=== PATIENT | male | born 1945 | race Caucasian/White ===

== ENCOUNTER 2016-03-09 21:42 | Emergency (ER) | payer OTHER ==
[2016-03-09 21:55] VITALS: BP 157/65; PULSE 97; TEMP 98; BMI 31.0
--- NOTE | 2016-03-09 23:34 | PDOC ---
History of Present Illness - History of Present Illness Initial Comments: 03/10/16 01:47 Patient is a 70 year old male with significant medical hx of AFib, HLD, HTN, CHF , BPH and hypothyroidism who is presenting to the ED with shortness of breath for two days. The patient was recently discharged from ICU (03/08/16) for a severe case of epistaxis. He reports that during his last night he experienced shortness of breath while he was trying to sleep. The patient was given a shot of lasix which helped him sleep for a few hours. This morning, sleeping at home , the patient woke up at 6 AM and experienced another sudden episode of shortness of breath.The patient called his doctor and he took a doubled dose of lasix today (took 80 mg) which helped him for a while until he had another episode of shortness of breath later this evening while trying to doze off in a recliner chair. Patient states that he has these episodes of shortness of breath when he is lying down; his symptoms tend to worsen when lying flat as he is going to sleep. The patient notes that at baseline his shortness of breath worsens when climbing a flight of stairs; he did not climb any stairs today. Pt states he feels well currently and denies any sob. Pt denies any increased leg swelling. Denies fever, chills, or chest pain. Denies abd pain, back pain, n/v, f/c, cough , hemoptysis. Social Hx: Former smoker " <Elizabeth Torrez - Last Filed: 03/10/16 01:46> <Geoffrey Dhillon - Last Filed: 03/10/16 02:03> - General Chief Complaint: Shortness of Breath Stated Complaint: SOB Time Seen by Provider: 03/09/16 22:10 Past History <Elizabeth Torrez - Last Filed: 03/10/16 01:46> - Past Medical History Cardiac Disorders: Yes (a.fib) CHF: Yes HTN: Yes Hypercholesterolemia: Yes Psychiatric Problems: Yes (depression) Thyroid Disease: Yes (hypo) - Psycho/Social/Smoking Cessation Hx Anxiety: No Suicidal Ideation: No Smoking History: Former smoker Have you smoked in the past 12 months: No Information on smoking cessation initiated: No Hx Alcohol Use: No Drug/Substance Use Hx: No <Geoffrey Dhillon - Last Filed: 03/10/16 02:03> - Past Medical History Allergies/Adverse Reactions: Allergies Allergy/AdvReac Type Severity Reaction Status Date / Time No Known Allergies Allergy Verified 03/09/16 21:51 Home Medications: Ambulatory Orders Carvedilol [Coreg] 25 mg PO DAILY 11/06/15 Dabigatran Etexilate Mesylate [Pradaxa -] 150 mg PO BID 11/06/15 Digoxin 125 mcg PO DAILY 11/06/15 Ergocalciferol (Vitamin D2) [Vitamin D2] 2,000 unit PO DAILY 11/06/15 Fenofibrate [Fenoglide] 120 mg PO DAILY 11/06/15 Sertraline HCl 50 mg PO DAILY 11/06/15 Simvastatin [Zocor -] 10 mg PO HS 11/06/15 Tamsulosin HCl 0.4 mg PO DAILY 11/06/15 Furosemide 40 mg PO DAILY #0 11/09/15 Levothyroxine [Synthroid -] 88 mcg PO DAILY@0700 #30 tablet 11/09/15 Potassium Chloride [K-Dur -] 20 meq PO DAILY #30 tablet.er 11/09/15 Valsartan [Diovan] 160 mg PO BID #60 tablet 11/09/15 [place]-3 Acid Ethyl Esters [Lovaza] 1 gm PO ASDIR 03/03/16 Cefuroxime Axetil [Ceftin -] 250 mg PO BID #14 tablet 03/08/16 Hydralazine HCl [Apresoline -] 25 mg PO BID #60 tablet 03/08/16 Sodium Chloride Nasal [place] [[place] Nasal [place] -] 2 spray NS QID #1 bottle 03/08/16 Review of Systems - Review of Systems Comments:: 03/10/16 01:48 CONSTITUTIONAL: No reported: Fever, Chills, Diaphoresis, Generalized Weakness, Malaise, Loss of Appetite HEENT: No reported: Rhinorrhea, Nasal Congestion, Throat Pain, Throat Swelling, Difficulty Swallowing, Mouth Swelling, Ear Pain, Eye Pain, Visual Changes CARDIOVASCULAR: No reported: Chest Pain, Syncope, Palpitations, Irregular Heart Rate, Lightheadedness, Peripheral Edema RESPIRATORY: Reported: Shortness of Breath No reported: Cough, SOB with Exertion, Orthopnea, Wheezing, Stridor, Hemoptysis GASTROINTESTINAL: No reported: Abdominal pain, Abdominal Distension, Nausea, Vomiting, Diarrhea, Constipation, Melena, Hematochezia GENITOURINARY: No reported: Dysuria, Frequency, Urgency, Hesitancy, Flank Pain, Genital Pain MUSCULOSKELETAL: No reported: Myalgia, Arthralgia, Joint Swelling, Back pain, Neck Pain SKIN: No reported: Rash, Itching, Pallor HEMEATOLOGIC/IMMUNOLOGIC: No reported: Easy Bleeding, Easy Bruising, Lymphadenopathy, Frequent infections ENDOCRINE: No reported: Unexplained Weight Gain, Unexplained Weight Loss, Heat Intolerance , Cold Intolerance NEUROLOGIC: No reported: Headache, Focal Weakness, Paresthesias, Vertigo, Lightheadedness, Unsteady Gait, Seizure, Mental Status Changes, Incontinence PSYCHIATRIC: No reported: Anxiety, Depression <Elizabeth Torrez - Last Filed: 03/10/16 01:46> *Physical Exam - Vital Signs Last Vital Signs Temp Pulse Resp BP Pulse Ox 98.0 F 97 H 14 157/65 97 03/09/16 21:52 03/09/16 21:52 03/09/16 21:52 03/09/16 21:52 03/09/16 21:52 - Physical Exam Comments: 03/10/16 01:48 GENERAL: The patient is awake, alert, and fully oriented, Nontoxic - in no acute distress. HEAD: Normocephalic, atraumatic. EYES: extraocular movements intact, sclera anicteric, conjunctiva clear. ENT: Normal voice, Moist mucous membranes. NECK: Normal range of motion, supple LUNGS: Breath sounds equal, clear to auscultation bilaterally. No wheezes, no rhonchi, no rales. HEART: Regular rate and rhythm, without murmur, rub or gallop. ABDOMEN: Soft, nontender, normoactive bowel sounds. No guarding, no rebound.No CVA tenderness EXTREMITIES: Lower extremity trace edema. Normal range of motion. No clubbing or cyanosis. No cords, erythema, or tenderness. NEUROLOGICAL: No facial assymetry, Normal speech, PSYCH: Normal mood, normal affect. SKIN: Warm, Dry, normal turgor. <Elizabeth Torrez - Last Filed: 03/10/16 01:46> - Vital Signs Last Vital Signs Temp Pulse Resp BP Pulse Ox 98.0 F 97 H 14 157/65 97 03/09/16 21:52 03/09/16 21:52 03/09/16 21:52 03/09/16 21:52 03/09/16 21:52 <Geoffrey Dhillon - Last Filed: 03/10/16 02:03> Heart Score/ECG Review - ECG Impressions Comment:: 03/10/16 00:23 Twelve-lead EKG was performed and reviewed by me. Irregularly iregular rate of 94 LAFB abnormal r wave progression nonspecifc st changes <Geoffrey Dhillon - Last Filed: 03/10/16 02:03> ED Treatment Course - LABORATORY CBC & Chemistry Diagram: 03/10/16 00:58 03/10/16 00:58 - ADDITIONAL ORDERS Additional order review: 03/10/16 00:58 RBC 5.02 MCV 87.3 MCHC 32.1 RDW 16.6 H MPV 10.6 Neutrophils % 71.2 Lymphocytes % 18.7 Monocytes % 7.3 Eosinophils % 1.7 Basophils % 1.1 <Elizabeth Torrez - Last Filed: 03/10/16 01:46> - LABORATORY CBC & Chemistry Diagram: 03/10/16 00:58 03/10/16 00:58 <Geoffrey Dhillon - Last Filed: 03/10/16 02:03> Medical Decision Making - Medical Decision Making 03/09/16 23:33 70y M recent hx of epistaxis present with sob - pt describes feeling sob when he is falling asleep - thinks it may be chf exacerbation, however pt denies any cp, leg swelling, orthpnea is bsaeline. pts exam unremarkable without crackles, le edema will ck cxr, ekg, labs susp[ect possible [place] A portion of this note was documented by scribe services under my direction. I have reviewed the details of the note, within reason, and agree with the documentation with the following case summary and management plan written by me 03/10/16 02:01 cxr shows no acute disease, possibly very mild congestion labs noted for bnp of 1k will give pt dose of lasix will d/c the pt to fu with dr. Martin as outpatient return precautions were discussed I discussed the physical exam findings, ancillary test results and final diagnoses with the patient. I answered all of the patient's questions. The patient was satisfied with the care received and felt comfortable with the discharge plan and treatment plan. The patient will call their primary care physician within 24 hours to arrange follow-up and will return to the Emergency Department with any new, persistent or worsening symptoms. <Geoffrey Dhillon - Last Filed: 03/10/16 02:03> *DC/Admit/Observation/Transfer - Attestations Scribe Attestion: 03/10/16 01:49 Documentation prepared by Elizabeth Torrez, acting as medical dir for Geoffrey Dhillon MD. <Elizabteh Torrez - Last Filed: 03/10/16 01:46> - Discharge Dispostion Admit: No <Geoffrey Dhillon - Last Filed: 03/10/16 02:03> Diagnosis at time of Disposition: CHF exacerbation Qualifiers: Congestive heart failure type: unspecified congestive heart failure type Qualified Code(s): I50.9 - Heart failure, unspecified - Discharge Dispostion Disposition: HOME Condition at time of disposition: Improved - Referrals Referrals: Edna Quintero MD [Primary Care Provider] - Lázaro Barksdale MD [Staff Physician] - - Patient Instructions Printed Discharge Instructions: DI for Heart Failure Additional Instructions: Return to the emergency department immediately with ANY new, persistent or worsening symptoms. You MUST call and follow up with your primary care doctor and business project analyst within 3-4 days for further evaluation of your symptoms. Results were discussed with you. Please make sure your doctor reviews the results of your emergency evaluation. If you had any xrays during your visit, it was read preliminarily by myself, a Radiologist will review it and if there are any additional findings we will call you. Print Language: CHINESE
[2016-03-10 01:12] LABS: BASOPHIL 1.1 % (0-2.0); EOSINOPHIL 1.7 % (0-4.5); MCH 28.1 pg (25.7-33.7); MCHC 32.1 g/dl (32.0-35.9); MEAN CELL VOLUME 87.3 fl (80-96); MEAN PLT VOLUME 10.6 fl (7.5-11.1); NEUTROPHILS 71.2 % (42.8-82.8); PLATELET COUNT 132 K/MM3 (134-434); RDW 16.6 % (11.9-15.9); WHITE BLOOD COUNT 8.5 K/mm3 (4.0-10.0)
[2016-03-10 01:41] LABS: ALBUMIN 3.5 g/dl (3.4-5.0); ANION GAP 12 (8-16); BILIRUBIN,TOTAL 1.1 mg/dL (0.2-1.0); CALCIUM 8.6 mg/dL (8.5-10.1); CO2 29 mmol/L (21-32); CREATININE 1.1 mg/dL (0.7-1.3); GLUCOSE,RANDOM 106 mg/dL (74-106); SGOT/AST 20 U/L (15-37); SGPT/ALT 14 U/L (12-78); TOT PROT 7.2 g/dl (6.4-8.2)
[2016-03-10 01:43] LABS: ALK PHOS 62 U/L (45-117)
[2016-03-10] MEDS ORDERED: FUROSEMIDE 40 MG/4 ML INJECTABLE VIAL IVPUSH ONE (02:00)
[2016-03-10] MEDS ORDERED: FUROSEMIDE 40 MG/4 ML INJECTABLE VIAL ONE (02:12)
--- NOTE | 2016-03-10 13:13 | EKG ---
Test Reason : Blood Pressure : / mmHG Vent. Rate : 094 BPM Atrial Rate : 101 BPM P-R Int : 000 ms QRS Dur : 112 ms QT Int : 368 ms P-R-T Axes : 000 -45 110 degrees QTc Int : 460 ms ATRIAL FIBRILLATION WITH PREMATURE VENTRICULAR OR ABERRANTLY CONDUCTED COMPLEXES LEFT ANTERIOR FASCICULAR BLOCK SEPTAL INFARCT (CITED ON OR BEFORE 07-MAY-2010) ST ABNORMAL ECG WHEN COMPARED WITH ECG OF 03-MAR-2016 09:26, T WAVE VARIATION Confirmed by SHAD RICO MD ([id number]) on 03/10/2016 1:13:09 PM Referred By: Overread By: SHAD RICO MD
== END 2016-03-10 02:23 | disposition home or self-care (01) ==
LOC: JER 21:42
PROC: 3E033GC Introduction of Other Therapeutic Substance into Peripheral Vein, Percutaneous Approach (ICD-10-PCS; principal; 2016-03-09)
DX: I50.9 Heart failure, unspecified (principal); I48.91 Unspecified atrial fibrillation; Z79.01 Long term (current) use of anticoagulants; I10 Essential (primary) hypertension; E78.5 Hyperlipidemia, unspecified; E78.00 Pure hypercholesterolemia, unspecified; N40.0 Benign prostatic hyperplasia without lower urinary tract symptoms; E03.9 Hypothyroidism, unspecified
CPT/HCPCS: 36415; 71010-TC; 80053; 83880; 85025; 93005; 93010; 96374; 99281-25

== ENCOUNTER 2016-12-01 12:08 | Emergency (ER) | payer OTHER ==
[2016-12-01 12:16] VITALS: BP 158/89; PULSE 84; TEMP 97.5; BMI 42.7
--- NOTE | 2016-12-01 13:16 | PDOC ---
Attending Attestation - Resident Resident Name: Gokul Wood - ED Attending Attestation I have performed the following: I have examined & evaluated the patient, The case was reviewed & discussed with the resident, I agree w/resident's findings & plan, Exceptions are as noted - HPI HPI: 12/01/16 13:15 nosebleed - Physicial Exam PE: 12/01/16 13:15 No Hemorrhage - Medical Decision Making 12/01/16 13:[address] Wood's Assessment and Plan
--- NOTE | 2016-12-01 13:24 | PDOC ---
History of Present Illness - General Chief Complaint: Nasal Bleeding Stated Complaint: BLOODY NOSE Time Seen by Provider: 12/01/16 13:13 - History of Present Illness Initial Comments: 12/01/16 15:40 Mr. Donohue is a 71 yo male with a significant past medical history of afib on xarelta, HTN, who presents to the emergency department with a several hour history of intractable nose bleed (R nostril). He says this has happened before and he was admitted before they were able to control it. The patient denies chest pain, shortness of breath, headache and dizziness. Denies fever, chills, nausea, vomit, diarrhea and constipation. Denies dysuria, frequency, urgency and hematuria. Allergies: NKDA Past History - Past Medical History Allergies/Adverse Reactions: Allergies Allergy/AdvReac Type Severity Reaction Status Date / Time No Known Allergies Allergy Verified 12/01/16 12:13 Home Medications: Ambulatory Orders Carvedilol [Coreg] 25 mg PO DAILY 11/06/15 Digoxin 125 mcg PO DAILY 11/06/15 Fenofibrate [Fenoglide] 120 mg PO DAILY 11/06/15 Sertraline HCl 50 mg PO DAILY 11/06/15 Simvastatin [Zocor -] 10 mg PO HS 11/06/15 Tamsulosin HCl 0.4 mg PO DAILY 11/06/15 Furosemide 40 mg PO DAILY #0 11/09/15 Levothyroxine [Synthroid -] 88 mcg PO DAILY@0700 #30 tablet 11/09/15 Potassium Chloride [K-Dur -] 20 meq PO DAILY #30 tablet.er 11/09/15 Valsartan [Diovan] 160 mg PO BID #60 tablet 11/09/15 Cefuroxime Axetil [Ceftin -] 250 mg PO BID #14 tablet 03/08/16 Hydralazine HCl [Apresoline -] 25 mg PO BID #60 tablet 03/08/16 Sodium Chloride Nasal [place] [[place] Nasal [place] -] 2 spray NS QID #1 bottle 03/08/16 Cardiac Disorders: Yes (a.fib) CHF: Yes HTN: Yes Hypercholesterolemia: Yes Psychiatric Problems: Yes (depression) Thyroid Disease: Yes (hypo) - Immunization History Immunization Up to Date: Yes - Suicide/Smoking/Psychosocial Hx Smoking History: Former smoker Have you smoked in the past 12 months: No If you are a former smoker, when did you quit?: 2001 Information on smoking cessation initiated: No Hx Alcohol Use: No Drug/Substance Use Hx: No Review of Systems - Review of Systems Comments:: 12/01/16 15:40 GENERAL/CONSTITUTIONAL: No fever or chills. No weakness. HEAD, EYES, EARS, NOSE AND THROAT: +R nostril Nose bleed since waking up. No change in vision. No ear pain or discharge. No sore throat. CARDIOVASCULAR: No chest pain or shortness of breath RESPIRATORY: No cough, wheezing, or hemoptysis. GASTROINTESTINAL: No nausea, vomiting, diarrhea or constipation. GENITOURINARY: No dysuria, frequency, or change in urination. MUSCULOSKELETAL: No joint or muscle swelling or pain. No neck or back pain. SKIN: No rash NEUROLOGIC: No headache, vertigo, loss of consciousness, or change in strength/ sensation. ENDOCRINE: No increased thirst. No abnormal weight change HEMATOLOGIC/LYMPHATIC: No anemia, easy bleeding, or history of blood clots. ALLERGIC/IMMUNOLOGIC: No hives or skin allergy. *Physical Exam - Vital Signs Last Vital Signs Temp Pulse Resp BP Pulse Ox 97.5 F L 84 20 158/89 100 12/01/16 12:13 12/01/16 12:13 12/01/16 12:13 12/01/16 12:13 12/01/16 12:13 - Physical Exam Comments: 12/01/16 15:41 GENERAL: Awake, alert, and fully oriented, in no acute distress HEAD: No signs of trauma, normocephalic, atraumatic EYES: PERRLA, EOMI, sclera anicteric, conjunctiva clear ENT: +R nostril bleeding profusely on presentation, Auricles normal inspection, hearing grossly normal, oropharynx clear without exudates. Moist mucosa NECK: Normal ROM, supple, no lymphadenopathy, JVD, or masses LUNGS: No distress, speaks full sentences, clear to auscultation bilaterally HEART: Regular rate and rhythm, normal S1 and S2, no murmurs, rubs or gallops, peripheral pulses normal and equal bilaterally. ABDOMEN: Soft, nontender, normoactive bowel sounds. No guarding, no rebound. No masses EXTREMITIES: Normal inspection, Normal range of motion, no edema. No clubbing or cyanosis. NEUROLOGICAL: Cranial nerves II through XII grossly intact. Normal speech, normal gait, no focal sensorimotor deficits SKIN: Warm, Dry, normal turgor, no rashes or lesions noted. ED Treatment Course - LABORATORY CBC & Chemistry Diagram: 12/01/16 14:04 12/01/16 14:04 Medical Decision Making - Medical Decision Making 12/01/16 15:49 Patient presents with bleeding R nostril. Currently inflated with 8cc's to control bleeding. 12/01/16 16:12 Bleeding under control with R nostril packing. Will D/C to ENT/PCP follow-up *DC/Admit/Observation/Transfer Diagnosis at time of Disposition: Epistaxis - Discharge Dispostion Disposition: HOME - Referrals Referrals: Edna Quintero MD [Primary Care Provider] - Jorgito Vigil MD [Staff Physician] - - Patient Instructions Printed Discharge Instructions: DI for Nosebleed Additional Instructions: As instructed do not take your Xarelto until you are able to meet with your ENT. Avoid any warm foods/drinks as well. Please return if any increase in bleeding you are unable to control or any pain.
[2016-12-01 14:22] LABS: BASOPHIL 1.1 % (0-2.0); EOSINOPHIL 1.1 % (0-4.5); MCH 29.2 pg (25.7-33.7); MCHC 33.2 g/dl (32.0-35.9); MEAN CELL VOLUME 88.1 fl (80-96); MEAN PLT VOLUME 9.2 fl (7.5-11.1); NEUTROPHILS 78.6 % (42.8-82.8); PLATELET COUNT 108 K/MM3 (134-434); RDW 15.4 % (11.9-15.9); WHITE BLOOD COUNT 7.7 K/mm3 (4.0-10.0)
[2016-12-01 14:52] LABS: ALBUMIN 4.3 g/dl (3.4-5.0); ALK PHOS 55 U/L (45-117); ANION GAP 7 (8-16); BILIRUBIN,TOTAL 1.3 mg/dL (0.2-1.0); CALCIUM 8.8 mg/dL (8.5-10.1); CO2 30 mmol/L (21-32); CREATININE 1.1 mg/dL (0.7-1.3); GLUCOSE,RANDOM 109 mg/dL (74-106); SGOT/AST 12 U/L (15-37); SGPT/ALT 22 U/L (12-78); TOT PROT 7.7 g/dl (6.4-8.2)
== END 2016-12-01 16:24 | disposition home or self-care (01) ==
LOC: JER 12:08
PROC: 2Y41X5Z Packing of Nasal Region using Packing Material (ICD-10-PCS; principal; 2016-12-01)
DX: R04.0 Epistaxis (principal); I48.91 Unspecified atrial fibrillation; Z79.01 Long term (current) use of anticoagulants; I10 Essential (primary) hypertension; I50.9 Heart failure, unspecified; E03.9 Hypothyroidism, unspecified; F32.9 Major depressive disorder, single episode, unspecified; Z87.891 Personal history of nicotine dependence
CPT/HCPCS: 30901-25; 36415; 80053; 85025; 99282-25

== ENCOUNTER 2018-05-30 21:00 | Inpatient (IN) | payer OTHER ==
[2018-05-30 22:12] LABS: VENOUS PC02 37.3 mmHg (41-51); VENOUS PH 7.44 (7.31-7.41); VENOUS PO2 44.1 mmHg (30-40)
[2018-05-30 22:31] LABS: INR 1.58 (0.83-1.09); PROTHROMBIN TIME (PATIENT) 18.7 SEC (9.7-13.0)
[2018-05-30 22:37] LABS: BASO % 0.3 % (0-2.0); EOS % 1.2 % (0-4.5); HEMATOCRIT 47.8 % (35.4-49); HEMOGLOBIN 16.6 GM/dL (11.7-16.9); LYMPH % 9.3 % (8-40); MCH 30.5 pg (25.7-33.7); MCHC 34.7 g/dl (32.0-35.9); MEAN CELL VOLUME 88.1 fl (80-96); MEAN PLT VOLUME 10.6 fl (7.5-11.1); MONO % 5.8 % (3.8-10.2); NEUT % 83.4 % (42.8-82.8); PLATELET COUNT 89 K/MM3 (134-434); RBC 5.42 M/mm3 (4.00-5.60); RDW 15.8 % (11.9-15.9); WHITE BLOOD COUNT 6.2 K/mm3 (4.0-10.0)
[2018-05-30] MEDS ORDERED: OSELTAMIVIR PHOSPHATE 75 MG CAPSULE PO ONE (22:37)
[2018-05-30 22:42] LABS: ALBUMIN 4.2 g/dl (3.4-5.0); ALK PHOS 49 U/L (45-117); ANION GAP 8 MMOL/L (8-16); BILIRUBIN,TOTAL 2.2 mg/dL (0.2-1); BLOOD UREA NITROGEN 16 mg/dL (7-18); CALCIUM 8.6 mg/dL (8.5-10.1); CHLORIDE 105 mmol/L (98-107); CO2 25 mmol/L (21-32); CREATININE 1.3 mg/dL (0.55-1.3); GLUCOSE,RANDOM 105 mg/dL (74-106); POTASSIUM 3.9 mmol/L (3.5-5.1); SGOT/AST 20 U/L (15-37); SGPT/ALT 19 U/L (13-61); SODIUM 138 mmol/L (136-145); TOT PROT 7.8 g/dl (6.4-8.2)
[2018-05-30] MEDS ORDERED: FUROSEMIDE 40 MG/4 ML INJECTABLE VIAL IVPUSH ONE (22:47)
--- NOTE | 2018-05-30 22:53 | PDOC ---
History of Present Illness - General Chief Complaint: Shortness of Breath Stated Complaint: SHORTNESS OF BREATH Time Seen by Provider: 05/30/18 21:10 - History of Present Illness Initial Comments: 05/30/18 22:48 The patient is a 72 year old male with a PMH of AFib, CHF on lasix and COPD who presents to the ER with sore throat, nasal congestion, shortness of breath and cough for the past 2 days. Patient states that two days ago he noticed the sore throat followed by all the other symptoms. Patient has been experiencing difficulty sleeping at night as his SOB is exacerbated when lying flat. Reports initially his SOB occurred when walking but now is present at rest as well. Pt has been compliant with lasix BID. +fever to 100.4 yesterday. He reports taking tylenol with no improvement of his symptoms. The patient denies chest pain, headache and dizziness. Denies fever, chills, nausea, vomit, diarrhea and constipation. Denies dysuria, frequency, urgency and hematuria. Allergies: NKA Past surgical history: None reported. Social history: No reported alcohol, drug or cigarette use. PCP: Dr. Edna Quintero Past History - Past Medical History Allergies/Adverse Reactions: Allergies Allergy/AdvReac Type Severity Reaction Status Date / Time No Known Allergies Allergy Verified 05/30/18 21:20 Home Medications: Ambulatory Orders Carvedilol [Coreg] 25 mg PO DAILY 11/06/15 Digoxin 125 mcg PO DAILY 11/06/15 Fenofibrate [Fenoglide] 120 mg PO DAILY 11/06/15 Sertraline HCl 50 mg PO DAILY 11/06/15 Simvastatin [Zocor -] 10 mg PO HS 11/06/15 Tamsulosin HCl 0.4 mg PO DAILY 11/06/15 Furosemide 40 mg PO DAILY #0 11/09/15 Levothyroxine [Synthroid -] 88 mcg PO DAILY@0700 #30 tablet 11/09/15 Potassium Chloride [K-Dur -] 20 meq PO DAILY #30 tablet.er 11/09/15 Valsartan [Diovan] 160 mg PO BID #60 tablet 11/09/15 Cefuroxime Axetil [Ceftin -] 250 mg PO BID #14 tablet 03/08/16 Sodium Chloride Nasal [place] [[place] Nasal [place] -] 2 spray NS QID #1 bottle 03/08/16 hydrALAZINE HCL [Apresoline -] 25 mg PO BID #60 tablet 03/08/16 Cardiac Disorders: Yes (a.fib) CHF: Yes HTN: Yes Hypercholesterolemia: Yes Psychiatric Problems: Yes (depression) Thyroid Disease: Yes (hypo) - Immunization History Immunization Up to Date: Yes - Suicide/Smoking/Psychosocial Hx Smoking History: Never smoked Have you smoked in the past 12 months: No If you are a former smoker, when did you quit?: 2001 Information on smoking cessation initiated: No Hx Alcohol Use: No Drug/Substance Use Hx: No Review of Systems - Review of Systems Comments:: 05/30/18 22:50 GENERAL/CONSTITUTIONAL: No fever or chills. (+) weakness. HEAD, EYES, EARS, NOSE AND THROAT: No change in vision. No ear pain or discharge. (+) nasal congestion. (+) sore throat. GASTROINTESTINAL: No nausea, vomiting, diarrhea or constipation. GENITOURINARY: No dysuria, frequency, or change in urination. CARDIOVASCULAR: No chest pain. (+) shortness of breath. RESPIRATORY: No wheezing, or hemoptysis. (+) cough. MUSCULOSKELETAL: No joint or muscle swelling or pain. No neck or back pain. SKIN: No rash NEUROLOGIC: No headache, vertigo, loss of consciousness, or change in strength/ sensation. ENDOCRINE: No increased thirst. No abnormal weight change. HEMATOLOGIC/LYMPHATIC: No anemia, easy bleeding, or history of blood clots. ALLERGIC/IMMUNOLOGIC: No hives or skin allergy. *Physical Exam - Vital Signs Last Vital Signs Temp Pulse Resp BP Pulse Ox 98.1 F 116 H 22 H 164/96 97 05/30/18 21:00 05/30/18 21:00 05/30/18 21:00 05/30/18 21:00 05/30/18 21:00 - Physical Exam Comments: 05/30/18 22:50 GENERAL: Awake, alert, and fully oriented, in no acute distress. Warm HEAD: No signs of trauma EYES: PERRLA, EOMI, sclera anicteric, conjunctiva clear ENT: Nares patent, oropharynx clear without exudates. Moist mucosa NECK: Normal ROM, supple, no lymphadenopathy, JVD, or masses LUNGS: Breath sounds equal, clear to auscultation bilaterally. No wheezes, and no crackles. +R sided course BS HEART: Tachycardic to 110s, irregularly irregular, normal S1 and S2, no murmurs , rubs or gallops ABDOMEN: Soft, nontender, normoactive bowel sounds. No guarding, no rebound. No masses : declines rectal temp EXTREMITIES: Normal range of motion, 1+ symmetric edema b/l (pt states is baseline and unchanged). No cords, erythema, or tenderness NEUROLOGICAL: Normal speech, cranial nerves intact, equal strength and sensation b/l SKIN: Warm, Dry, normal turgor, no rashes or lesions noted. Moderate Sedation - Procedure Monitoring Vital Signs: Procedure Monitoring Vital Signs Temperature 98.1 F 05/30/18 21:00 Pulse Rate 116 H 05/30/18 21:00 Respiratory Rate 22 H 05/30/18 21:00 Blood Pressure 164/96 05/30/18 21:00 O2 Sat by Pulse Oximetry (%) 97 05/30/18 21:00 Heart Score/ECG Review #1 05/30/18 22:53 Twelve-lead EKG was performed and reviewed by me. Atrial fibrillation, rate 93. Left axis deviation. L Anterior fascicular block. ST depression in leads 1, aVL , V5 to V6. No ST elevations. Peaked T waves in the septal leads. when compared to EKG from 03/09/2016, no significant changes. ED Treatment Course - LABORATORY CBC & Chemistry Diagram: 05/30/18 22:00 05/30/18 22:00 - ADDITIONAL ORDERS Additional order review: Laboratory Results 05/30/18 05/30/18 05/30/18 22:00 22:00 22:00 PT with INR 18.70 H INR 1.58 H PTT (Actin FS) VBG pH POC VBG pCO2 POC VBG pO2 VBG HCO3 VBG O2 Sat (Karla) VBG Base Excess Sodium Potassium Chloride Carbon Dioxide Anion Gap BUN Creatinine Creat Clearance w eGFR Random Glucose Calcium Magnesium Total Bilirubin AST ALT Alkaline Phosphatase Troponin I 0.03 B-Natriuretic Peptide 1587.9 H Total Protein Albumin 05/30/18 05/30/18 05/30/18 22:00 22:00 22:00 PT with INR INR PTT (Actin FS) 47.9 H VBG pH POC VBG pCO2 POC VBG pO2 VBG HCO3 VBG O2 Sat (Karla) VBG Base Excess Sodium 138 Potassium 3.9 Chloride 105 Carbon Dioxide 25 Anion Gap 8 BUN 16 Creatinine 1.3 Creat Clearance w eGFR 54.11 Random Glucose 105 Calcium 8.6 Magnesium 2.2 Total Bilirubin 2.2 H AST 20 ALT 19 Alkaline Phosphatase 49 Troponin I B-Natriuretic Peptide Total Protein 7.8 Albumin 4.2 05/30/18 22:00 PT with INR INR PTT (Actin FS) VBG pH 7.44 H POC VBG pCO2 37.3 L POC VBG pO2 44.1 H VBG HCO3 24.9 VBG O2 Sat (Karla) 79.7 VBG Base Excess 1.5 Sodium Potassium Chloride Carbon Dioxide Anion Gap BUN Creatinine Creat Clearance w eGFR Random Glucose Calcium Magnesium Total Bilirubin AST ALT Alkaline Phosphatase Troponin I B-Natriuretic Peptide Total Protein Albumin 05/30/18 22:00 RBC 5.42 MCV 88.1 MCHC 34.7 RDW 15.8 MPV 10.6 D Neutrophils % 83.4 H Lymphocytes % 9.3 D Monocytes % 5.8 D Eosinophils % 1.2 Basophils % 0.3 - RADIOLOGY Radiology Studies Ordered: Category Date Time Status CHEST CT WITHOUT CONTRAST [CT] Stat CT Scan 05/30/18 22:40 Ordered CHEST X-RAY PORTABLE* [RAD] Stat Radiology 05/30/18 21:18 Taken Medical Decision Making - Medical Decision Making 05/30/18 22:55 72yo M with MMP including CHF, Afib presents to the ED with sore throat, cough, and progressive SOB. Vitals remarkable for elevated HR to 110s, elevated BP. Pt feels warm with normal oral temp, declines rectal temp W/u remarkable for flu A+ and elevated BNP Sxs likely 2/2 flu with concomitant CHF exacerbation Plan to treat with tamiflu, IV lasix, tele obs admission 05/30/18 23:[address] Tejeda, pt admitted to tele obs Case discussed in detail with admitting physician including history, physical exam and ancillary studies. Admitting physician has assumed care for the patient, will follow all pending diagnostics and will complete the evaluation and treatment. *DC/Admit/Observation/Transfer Diagnosis at time of Disposition: CHF exacerbation, Influenza A, SOB (shortness of breath) - Discharge Dispostion Condition at time of disposition: Stable Decision to Admit order Date/Time: Decision to Admit Order Category Date Time Status Decision to Admit to Hospital Routine Admission 05/30/18 22:45 Active - Referrals Referrals: Edna Quintero MD [Primary Care Provider] - - Patient Instructions - Post Discharge Activity - Attestations Physician Attestion: 05/30/18 23:16 I, Dr. Alejandra Harrington MD, attest that this document has been prepared under my direction and personally reviewed by me in its entirety. I further attest, that it accurately reflects all work, treatment, procedures and medical decision -making performed by me.
[2018-05-30] MEDS ORDERED: ACETAMINOPHEN 1000 MG/100 ML VIAL (NON FORMULARY) IVPB ONE (23:29)
--- NOTE | 2018-05-30 23:29 | HP ---
CHIEF COMPLAINT: PCP: Dr. Quintero HISTORY OF PRESENT ILLNESS: Thank you Dr. Quintero for allowing [facility] to take part in the ongoing care of your patient. Briefly, this is a 72 y/o male with a PMH as documented presenting to the ER with a CC of shortness of breath. He had several days of nonspecific URI symptoms and was found today in the ER to be positive for influenza A as well as to have an elevated BNP (last value in our system was from several years ago). He has a slight cough but is not producing copious sputum. Was having some subjective fevers at home with malaise. He states that he is compliant with his medications. He is not experiencing any bhavna chest pain. He is known to have NICM with his last echo in the system being 2015 with a EF of ~45%. PAST MEDICAL HISTORY: Afib (on xarelto), COPD, NICM (45%), HTN, HLD, Hpothyroidism, Depression, Obesity, Arthritis, BPH PAST SURGICAL HISTORY: No recent procedures Social History: Nondrinker, nonsmoker Family History: Asked and noncontributory Allergies No Known Allergies Allergy (Verified 05/30/18 21:20) HOME MEDICATIONS: Home Medications Medication Instructions Recorded Carvedilol [Coreg] 25 mg PO DAILY 11/06/15 Digoxin 125 mcg PO DAILY 11/06/15 Sertraline HCl 50 mg PO DAILY 11/06/15 Simvastatin [Zocor -] 10 mg PO HS 11/06/15 Tamsulosin HCl 0.4 mg PO DAILY 11/06/15 Furosemide 40 mg PO DAILY #0 11/09/15 Potassium Chloride [K-Dur -] 20 meq PO DAILY #30 tablet.er 11/09/15 Levothyroxine [Synthroid -] 125 mcg PO DAILY@0700 05/30/18 Losartan Potassium [Cozaar -] 100 mg PO DAILY 05/30/18 Rivaroxaban [Xarelto -] 10 mg PO DAILY 05/30/18 hydrALAZINE HCL [Apresoline -] 50 mg PO BID 05/30/18 REVIEW OF SYSTEMS 10 sys ROS done and negative aside from HPI PHYSICAL EXAMINATION Vital Signs - 24 hr 05/30/18 21:00 Temperature 98.1 F Pulse Rate 116 H Respiratory 22 H Rate Blood Pressure 164/96 O2 Sat by Pulse 97 Oximetry (%) GENERAL: Awake, alert, and fully oriented, in no acute distress. HEAD: Normal with no signs of trauma. EYES: Pupils equal, round and reactive to light, extraocular movements intact EARS, NOSE, THROAT: Ears normal, nares patent, oropharynx clear without exudates. Moist mucous membranes. NECK: Normal range of motion, supple without lymphadenopathy, JVD, or masses. LUNGS: Breath sounds equal, clear to auscultation bilaterally. HEART:tachycardic slightly and irregularly irregular, ABDOMEN: Soft, nontender, not distended, MUSCULOSKELETAL: Normal range of motion at all joints. NEUROLOGICAL: Cranial nerves II-XII intact. Normal speech. Normal gait. PSYCHIATRIC: Cooperative. Good eye contact. Appropriate mood and affect. SKIN: Warm, dry, normal turgor, no rashes or lesions noted, normal capillary refill. Laboratory Results - last 24 hr 05/30/18 05/30/18 05/30/18 22:00 22:00 22:00 WBC RBC Hgb Hct MCV MCH MCHC RDW Plt Count MPV Absolute Neuts (auto) Neutrophils % Lymphocytes % Monocytes % Eosinophils % Basophils % Nucleated RBC % PT with INR INR PTT (Actin FS) 47.9 H VBG pH 7.44 H POC VBG pCO2 37.3 L POC VBG pO2 44.1 H VBG HCO3 24.9 VBG O2 Sat (Karla) 79.7 VBG Base Excess 1.5 Sodium 138 Potassium 3.9 Chloride 105 Carbon Dioxide 25 Anion Gap 8 BUN 16 Creatinine 1.3 Creat Clearance w eGFR 54.11 Random Glucose 105 Calcium 8.6 Magnesium Total Bilirubin 2.2 H AST 20 ALT 19 Alkaline Phosphatase 49 Troponin I B-Natriuretic Peptide Total Protein 7.8 Albumin 4.2 Influenza A (Rapid) Influenza B (Rapid) 05/30/18 05/30/18 05/30/18 22:00 22:00 22:00 WBC 6.2 RBC 5.42 Hgb 16.6 Hct 47.8 MCV 88.1 MCH 30.5 MCHC 34.7 RDW 15.8 Plt Count 89 L MPV 10.6 D Absolute Neuts (auto) 5.2 Neutrophils % 83.4 H Lymphocytes % 9.3 D Monocytes % 5.8 D Eosinophils % 1.2 Basophils % 0.3 Nucleated RBC % 0 PT with INR INR PTT (Actin FS) VBG pH POC VBG pCO2 POC VBG pO2 VBG HCO3 VBG O2 Sat (Karla) VBG Base Excess Sodium Potassium Chloride Carbon Dioxide Anion Gap BUN Creatinine Creat Clearance w eGFR Random Glucose Calcium Magnesium 2.2 Total Bilirubin AST ALT Alkaline Phosphatase Troponin I B-Natriuretic Peptide 1587.9 H Total Protein Albumin Influenza A (Rapid) Influenza B (Rapid) 05/30/18 05/30/18 05/30/18 22:00 22:00 22:05 WBC RBC Hgb Hct MCV MCH MCHC RDW Plt Count MPV Absolute Neuts (auto) Neutrophils % Lymphocytes % Monocytes % Eosinophils % Basophils % Nucleated RBC % PT with INR 18.70 H INR 1.58 H PTT (Actin FS) VBG pH POC VBG pCO2 POC VBG pO2 VBG HCO3 VBG O2 Sat (Karla) VBG Base Excess Sodium Potassium Chloride Carbon Dioxide Anion Gap BUN Creatinine Creat Clearance w eGFR Random Glucose Calcium Magnesium Total Bilirubin AST ALT Alkaline Phosphatase Troponin I 0.03 B-Natriuretic Peptide Total Protein Albumin Influenza A (Rapid) Positive A Influenza B (Rapid) Negative CT chest shows no infiltrates or effusions but notes a 6.8mm LLL nodule that will need investigated to r/o neoplasm. Incidental finding of nonobstructing renal stone. Cardiomegaly and calcified coronary A's are demonstrated. ASSESSMENT/PLAN: Patient presents to the hospital for shortness of breath found to be flu positive and have an elevated BNP. 1) Shortness of Breath -Secondary to influenza most likely which may have triggered a fluid overload. 2) Influenza A -Tamiflu; PRN O2. No infiltrates on CT. 3) Elevated BNP with history of CHF 2/2 NICM -Noted old echo results; repeating. Consulting his adjustment clerk. He had good output after lasix and his respiratory status is improved. Will leave his lasix IV on board and will defer additional changes to cardio in the AM (in that case would DC PO). -QD weights, low salt diet, strict is and os. 4) Afib on Xarelto -Given tonight's dose; monitoring on tele given #1. Confirm medications ( pharmacy not answering) and will continue documented coreg, digoxin. Checking digoxin level. Cardiology will be following so will defer further management to their service 5) Hypothyroidism with elevated TSH -Checking FT4; continue home synthroid in the meantime. 6) Pulmonary Nodule -Has seen Dr. Miguelina in the past and got a PET for this 7) HTN -Continue home meds 8) HLD -Continue home meds 9) Obesity -Director Telehealth prior to DC 10) Elevated bilirubin -Trend CMP; fractionate and check RUQ US. Consider GI consult if needed. Visit type - Emergency Visit Emergency Visit: Yes ED Registration Date: 06/01/18 Care time: The patient presented to the Emergency Department on the above date and was hospitalized for further evaluation of their emergent condition. - New Patient This patient is new to me today: Yes Date on this admission: 06/28/18 - Critical Care Critical Care patient: No
[2018-05-30] MEDS ORDERED: ACETAMINOPHEN INJECTION 100 ML IVPB ONE (23:52)
[2018-05-30] MEDS ORDERED: OSELTAMIVIR PHOSPHATE 75 MG CAPSULE ONE (23:52)
[2018-05-30] MEDS ORDERED: FUROSEMIDE 40 MG/4 ML INJECTABLE VIAL ONE (23:53)
[2018-05-31 02:12] LABS: MAGNESIUM 2.2 mg/dL (1.8-2.4)
[2018-05-31] MEDS: RIVAROXABAN 10 MG TABLET PO SCH ×2 (04:22→17:55)
[2018-05-31 07:16] LABS: BASO % 0.6 % (0-2.0); EOS % 1.2 % (0-4.5); HEMATOCRIT 48.9 % (35.4-49); LYMPH % 14.5 % (8-40); MCH 30.8 pg (25.7-33.7); MCHC 34.8 g/dl (32.0-35.9); MEAN CELL VOLUME 88.5 fl (80-96); MEAN PLT VOLUME 10.5 fl (7.5-11.1); MONO % 6.6 % (3.8-10.2); NEUT % 77.1 % (42.8-82.8); PLATELET COUNT 88 K/MM3 (134-434); RBC 5.52 M/mm3 (4.00-5.60); RDW 16.2 % (11.9-15.9); WHITE BLOOD COUNT 5.8 K/mm3 (4.0-10.0)
[2018-05-31] MEDS: LEVOTHYROXINE NA 125 MCG TABLET (FP) PO SCH (07:20)
[2018-05-31 07:48] LABS: ALBUMIN 4.2 g/dl (3.4-5.0); ALK PHOS 48 U/L (45-117); ANION GAP 9 MMOL/L (8-16); BILIRUBIN,TOTAL 2.3 mg/dL (0.2-1); BLOOD UREA NITROGEN 14 mg/dL (7-18); CALCIUM 8.1 mg/dL (8.5-10.1); CHLORIDE 103 mmol/L (98-107); CO2 25 mmol/L (21-32); CREATININE 1.2 mg/dL (0.55-1.3); GLUCOSE,RANDOM 98 mg/dL (74-106); POTASSIUM 3.4 mmol/L (3.5-5.1); SGOT/AST 18 U/L (15-37); SGPT/ALT 19 U/L (13-61); SODIUM 138 mmol/L (136-145)
[2018-05-31] MEDS: TAMSULOSIN HCL 0.4 MG CAP PO SCH (09:30)
[2018-05-31] MEDS ORDERED: FUROSEMIDE 40 MG TABLET (FP) PO SCH (10:00)
--- NOTE | 2018-05-31 10:12 | EKG ---
Test Reason : Blood Pressure : / mmHG Vent. Rate : 093 BPM Atrial Rate : 091 BPM P-R Int : 000 ms QRS Dur : 108 ms QT Int : 336 ms P-R-T Axes : 000 -51 107 degrees QTc Int : 417 ms ATRIAL FIBRILLATION LEFT ANTERIOR FASCICULAR BLOCK ANTEROSEPTAL INFARCT (CITED ON OR BEFORE 07-MAY-2010) ABNORMAL ECG WHEN COMPARED WITH ECG OF 09-MAR-2016 22:23, NO SIGNIFICANT CHANGE WAS FOUND Confirmed by SHAD RICO MD ([id number]) on 05/31/2018 10:12:10 AM Referred By: Confirmed By:SHAD RICO MD
[2018-05-31] MEDS: hydrALAZINE HCL 50 MG TABLET (FP) PO SCH ×2 (10:28→22:07)
[2018-05-31] MEDS: CARVEDILOL 25 MG TABLET (FP) PO SCH ×2 (10:29→22:07)
[2018-05-31] MEDS: LOSARTAN POTASSIUM 50 MG TABLET (FP) PO SCH (10:29)
[2018-05-31] MEDS: POTASSIUM CHLORIDE TABS 20 MEQ TABLET.ER (FP) PO SCH (10:30)
[2018-05-31] MEDS: SERTRALINE HCL 50 MG TABLET (FP) PO SCH (10:30)
[2018-05-31] MEDS: OSELTAMIVIR PHOSPHATE 75 MG CAPSULE PO SCH ×2 (10:30→22:07)
[2018-05-31] MEDS: DIGOXIN 0.125 MG TABLET (FP) PO SCH (10:30)
[2018-05-31] MEDS: FUROSEMIDE 40 MG/4 ML INJECTABLE VIAL IVPUSH SCH (10:30)
--- NOTE | 2018-05-31 14:55 | ECHO ---
Name: NO BUNCH Exam:Adult Echocardiogram Study Date: 05/31/2018 01:26 PM Age: 72 yrs Reason For Study: ELEVATED BNP HX NICM Height: 76 in Weight: 265 lb BSA: 2.5 m2 MMode/2D Measurements & Calculations IVSd: 1.1 cm Ao root diam: 3.1 cm LVIDd: 5.4 cm LA dimension: 7.6 cm LVIDs: 4.2 cm LVPWd: 1.1 cm EDV(Teich): 144.1 ml LVOT diam: 2.2 cm ESV(Teich): 76.9 ml Doppler Measurements & Calculations MV E max césar: 100.6 cm/sec Ao V2 max: 150.9 cm/sec Ao max P.1 mmHg Ao V2 mean: 117.7 cm/sec Ao mean P.2 mmHg Ao V2 VTI: 26.9 cm DESTIN(I,D): 1.5 cm2 DESTIN(V,D): 1.9 cm2 LV V1 max P.5 mmHg MR max césar: 486.1 cm/sec LV V1 mean P.96 mmHg MR max P.5 mmHg LV V1 max: 78.8 cm/sec LV V1 mean: 43.4 cm/sec LV V1 VTI: 11.2 cm SV(LVOT): 40.6 ml Med Peak E' César: 5.7 cm/sec Med E/e': 17.8 Lat Peak E' César: 9.7 cm/sec Lat E/e': 10.4 Procedure A complete two-dimensional transthoracic echocardiogram was performed (2D, M-mode, Doppler and color flow Doppler). Technically limited study. Left Ventricle The left ventricle is normal in size. Left ventricular systolic function is mildly reduced. Ejection Fraction = 45-50%. There is mild global hypokinesis of the left ventricle. Right Ventricle The right ventricle is normal size. The right ventricular systolic function is normal. RV systolic TD I is 12 cm/s. Atria The left atrium is severely dilated. Right atrial size is normal. Mitral Valve There is mild mitral annular calcification. There is moderate mitral regurgitation. Tricuspid Valve The tricuspid valve is normal in structure and function. There is mild tricuspid regurgitation. Aortic Valve There is mild aortic sclerosis.;. No aortic regurgitation is present. Pulmonic Valve The pulmonic valve is not well visualized. Great Vessels The aortic root is normal size. Pericardium/Pleura There is no pericardial effusion. Interpretation Summary Technically limited study The left ventricle is normal in size. Left ventricular systolic function is mildly reduced. There is mild global hypokinesis of the left ventricle. Ejection Fraction = 45-50%. The right ventricular systolic function is normal. The left atrium is severely dilated. Right atrial size is normal. There is mild mitral annular calcification. There is moderate mitral regurgitation. There is mild tricuspid regurgitation. There is mild aortic sclerosis.; There is no pericardial effusion. Previous study is not available for comparison Tank Edward MD 05/31/2018 02:55 PM
--- NOTE | 2018-05-31 16:41 | PN ---
Progress Note (short form) - Note Progress Note: pt seen/ examined chart reviewed cough + +ve flu had refused flu shot Vital Signs Temp 98.1 F 05/30/18 21:00 Pulse 87 05/31/18 14:50 Resp 24 H 05/31/18 14:50 BP 113/56 L 05/31/18 14:50 Pulse Ox 96 05/31/18 14:50 Intake & Output 05/30/18 05/31/18 05/31/18 23:59 11:59 23:59 Weight 265 lb Other: Height 6 ft 4 in Body Mass Index (BMI) 32.2 Weight Measurement Method Est/Stated by Patient Active Medications Atorvastatin Calcium (Lipitor -) 10 mg PO [facility] Carvedilol (Coreg -) 25 mg PO BID [facility] Last Admin: 05/31/18 10:29 Dose: 25 mg Digoxin (Lanoxin -) 0.125 mg PO DAILY [facility] Last Admin: 05/31/18 10:30 Dose: 0.125 mg Furosemide (Lasix Injection -) 40 mg IVPUSH DAILY [facility] Last Admin: 05/31/18 10:30 Dose: 40 mg Hydralazine HCl (Apresoline -) 50 mg PO BID [facility] Last Admin: 05/31/18 10:28 Dose: 50 mg Levothyroxine Sodium (Synthroid -) 125 mcg PO DAILY@0700 [facility] Last Admin: 05/31/18 07:20 Dose: 125 mcg Losartan Potassium (Cozaar -) 100 mg PO DAILY [facility] Last Admin: 05/31/18 10:29 Dose: 100 mg Oseltamivir Phosphate (Tamiflu -) 75 mg PO BID [facility] Stop: 06/05/18 09:59 Last Admin: 05/31/18 10:30 Dose: 75 mg Potassium Chloride (K-Dur -) 20 meq PO DAILY [facility] Last Admin: 05/31/18 10:30 Dose: 20 meq Rivaroxaban (Xarelto -) 10 mg PO DAILY@1800 [facility] Last Admin: 05/31/18 04:22 Dose: 10 mg Sertraline HCl (Zoloft -) 50 mg PO DAILY [facility] Last Admin: 05/31/18 10:30 Dose: 50 mg Tamsulosin HCl (Flomax -) 0.4 mg PO DAILY@0830 [facility] Last Admin: 05/31/18 09:30 Dose: 0.4 mg CBC, BMP 05/31/18 06:20 03/25/19 06:20 echo/ ct chest reviewed Physical exam Awake heart sounds regular Lungs --bilateral scattered rhonchi And- soft, NT.bowel sounds present. No edema neuro---alert and awake a/p discussed continue present care droplet precautions in place. continue present care Supplement potassium Consider changing Lasix to by mouth in a.m. Discussed with patient's Will follow
[2018-05-31] MEDS ORDERED: POTASSIUM CHLORIDE ORAL LIQUID 20 MEQ/15 ML PO ONE (17:00)
[2018-05-31] MEDS ORDERED: POTASSIUM CHLORIDE ORAL LIQUID 20 MEQ/15 ML ONE (17:27)
[2018-05-31 21:01] VITALS: BMI 32.1
[2018-05-31] MEDS: ATORVASTATIN CA 10 MG TABLET (FP) PO SCH (22:07)
[2018-06-01] MEDS ORDERED: guaiFENesin 200 MG/10 ML 10 ML UNIT-DOSE CUPS PO ONE (04:03)
[2018-06-01] MEDS: LEVOTHYROXINE NA 125 MCG TABLET (FP) PO SCH (06:23)
[2018-06-01] MEDS ORDERED: ALBUTEROL SO4 2.5/IPRATROPIUM 0.5 INH SOL 3 ML VIAL.NEB. NEB PRN (10:30)
--- NOTE | 2018-06-01 10:30 | PN ---
Progress Note (short form) - Note Progress Note: No distress Events noted coughing+ greenish phlegm No chest pain Vital Signs - 24 hr 05/31/18 05/31/18 05/31/18 14:50 17:53 19:10 Temperature 99.6 F Pulse Rate 68 Pulse Rate [ 87 88 Apical] Respiratory 24 H 18 20 Rate Blood Pressure 160/64 Blood Pressure 155/83 [Left Arm] Blood Pressure 113/56 L [Right Arm] O2 Sat by Pulse 96 97 Oximetry (%) 05/31/18 05/31/18 06/01/18 20:15 23:00 02:00 Temperature 99.2 F 98.4 F Pulse Rate 86 92 H 95 H Pulse Rate [ Apical] Respiratory 20 20 20 Rate Blood Pressure 139/69 138/72 Blood Pressure [Left Arm] Blood Pressure [Right Arm] O2 Sat by Pulse 100 Oximetry (%) 06/01/18 06/01/18 06/01/18 05:27 09:00 10:00 Temperature 97.9 F Pulse Rate 89 88 Pulse Rate [ Apical] Respiratory 20 24 H Rate Blood Pressure 144/65 135/66 Blood Pressure [Left Arm] Blood Pressure [Right Arm] O2 Sat by Pulse 95 Oximetry (%) Current Medications Generic Name Dose Route Start Last Admin Trade Name Freq PRN Reason Stop Dose Admin Albuterol/Ipratropium 1 amp 06/01/18 10:30 Duoneb - NEB Q6H PRN SHORTNESS OF BREATH Atorvastatin Calcium 10 mg 05/31/18 22:00 05/31/18 22:07 Lipitor - PO 10 mg HS GISEL Administration Carvedilol 25 mg 05/31/18 10:00 05/31/18 22:07 Coreg - PO 25 mg BID GISEL Administration Digoxin 0.125 mg 05/31/18 10:00 05/31/18 10:30 Lanoxin - PO 0.125 mg DAILY GISEL Administration Furosemide 40 mg 05/31/18 10:00 05/31/18 10:30 Lasix Injection - IVPUSH 40 mg DAILY GISEL Administration Hydralazine HCl 50 mg 05/31/18 10:00 05/31/18 22:07 Apresoline - PO 50 mg BID GISEL Administration Levothyroxine Sodium 125 mcg 05/31/18 07:00 06/01/18 06:23 Synthroid - PO 125 mcg DAILY@0700 GISEL Administration Losartan Potassium 100 mg 05/31/18 10:00 05/31/18 10:29 Cozaar - PO 100 mg DAILY GISEL Administration Oseltamivir Phosphate 75 mg 05/31/18 10:00 05/31/18 22:07 Tamiflu - PO 06/05/18 09:59 75 mg BID GISEL Administration Potassium Chloride 20 meq 05/31/18 10:00 05/31/18 10:30 K-Dur - PO 20 meq DAILY GISEL Administration Rivaroxaban 10 mg 05/31/18 04:30 05/31/18 17:55 Xarelto - PO 10 mg DAILY@1800 [facility]ISEL Administration Sertraline HCl 50 mg 05/31/18 10:00 05/31/18 10:30 Zoloft - PO 50 mg DAILY [facility]EL Administration Tamsulosin HCl 0.4 mg 05/31/18 08:30 05/31/18 09:30 Flomax - PO 0.4 mg DAILY@0830 [facility]ISEL Administration Laboratory Results - last 24 hr 05/31/18 16:22 Creatine Kinase 463 H Creatine Kinase Index 0.3 CK-MB (CK-2) 1.5 Troponin I 0.05 S1 S2 RRR Lungs ronchi+ And- soft, NT No edema PLAN Start nebs as needed Tamiflu Continue Lasix-- spoke with cardiology-- will change to PO Noted sono abd , Ct results Pt refusing hida scan No pain in abdomen possible hepatic congestion due to CHF dc planning Problem List - Problems (1) CHF exacerbation Code(s): I50.9 - HEART FAILURE, UNSPECIFIED (2) Influenza A Code(s): J10.1 - FLU DUE TO OTH IDENT INFLUENZA VIRUS W OTH RESP MANIFEST (3) SOB (shortness of breath) Code(s): R06.02 - SHORTNESS OF BREATH (4) Atrial fibrillation Code(s): I48.91 - UNSPECIFIED ATRIAL FIBRILLATION Qualifiers: Atrial fibrillation type: persistent Qualified Code(s): I48.1 - Persistent atrial fibrillation (5) Chronic passive hepatic congestion Code(s): K76.1 - CHRONIC PASSIVE CONGESTION OF LIVER (6) Diastolic dysfunction without heart failure Code(s): I51.9 - HEART DISEASE, UNSPECIFIED
[2018-06-01] MEDS: POTASSIUM CHLORIDE TABS 20 MEQ TABLET.ER (FP) PO SCH (10:49)
[2018-06-01] MEDS: TAMSULOSIN HCL 0.4 MG CAP PO SCH (10:49)
[2018-06-01] MEDS: OSELTAMIVIR PHOSPHATE 75 MG CAPSULE PO SCH ×2 (10:49→21:27)
[2018-06-01] MEDS: LOSARTAN POTASSIUM 50 MG TABLET (FP) PO SCH (10:49)
[2018-06-01] MEDS: CARVEDILOL 25 MG TABLET (FP) PO SCH ×2 (10:49→21:26)
[2018-06-01] MEDS: hydrALAZINE HCL 50 MG TABLET (FP) PO SCH ×2 (10:49→21:26)
[2018-06-01] MEDS: DIGOXIN 0.125 MG TABLET (FP) PO SCH (10:49)
[2018-06-01] MEDS: FUROSEMIDE 40 MG/4 ML INJECTABLE VIAL IVPUSH SCH (10:50)
[2018-06-01] MEDS: SERTRALINE HCL 50 MG TABLET (FP) PO SCH (10:50)
--- NOTE | 2018-06-01 11:01 | CONS ---
DATE OF CONSULTATION: DATE OF DICTATION: 06/01/2018 REQUESTED BY: Edna Quintero MD CHIEF COMPLAINT: 1. Sore throat, cough. 2. Poor appetite. 3. Increasing shortness of breath. HISTORY OF PRESENT ILLNESS: The patient is a 72-year-old retired [employer] with longstanding history of hypertension, hypertensive cardiovascular disease, permanent atrial fibrillation, history of congestive heart failure, left ventricular diastolic dysfunction, chronic obstructive pulmonary disease, developed a mild sore throat on Thursday and then developed a cough that became progressively worse. He also started noticing a poor appetite and developed increasing dyspnea that initially occurred with exertion and prior to admission he was having dyspnea at rest. He was brought to the emergency room. Was found to be febrile and diagnosed to have influenza A. Since admission and after receiving IV Lasix he has no further dyspnea, continues to have a cough with scant expectoration. No history of myalgias, chills or fever reported. No history of chest pain or discomfort, no history of palpitations, lightheadedness, dizziness, presyncope or syncope. PAST HISTORY: As mentioned in the history of present illness. History of hypothyroidism. SURGICAL HISTORY: Had surgery on the right wrist for a fracture. SOCIAL HISTORY: Is . 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 Has 3 adopted children, 2 of them boys and a daughter. Smoked from the age of 14 to 51. Used to smoke 1-1/2 packets of cigarettes per day. Has a rare beer and denies drug use. FAMILY HISTORY: Father at the age of 81 related to carcinoma of the prostate. He had COPD and was a heavy smoker. Mother of natural causes at the age of 101. Has 1 sister who is apparently healthy. ALLERGIES: None reported. CURRENT MEDICATIONS: 1. Cozaar 100 mg p.o. daily. 2. Flomax 0.4 mg p.o. daily. 3. Xarelto 10 mg p.o. daily. 4. Sertraline 50 mg p.o. daily. 5. Carvedilol 25 mg p.o. b.i.d. 6. Digoxin 0.125 mg p.o. daily. 7. Hydralazine 50 mg p.o. b.i.d. 8. Lipitor 10 mg p.o. daily. 9. Furosemide 40 mg IV push. 10. Tamiflu 75 mg p.o. b.i.d. 11. Potassium supplement 10 mEq p.o. daily. 12. Levothyroxine 125 mg p.o. daily. REVIEW OF SYSTEMS:Constitutional: Denies any chills, history of low-grade fever, no history of night sweats, no history of unintentional weight loss. HEENT: No history of headaches, diplopia, blurred vision reported. No history of epistaxis, hoarseness, tinnitus or deafness. Cardiovascular: See history of present illness. Respiratory: See history of present illness, no history of hemoptysis. Gastrointestinal: History of poor appetite, no history of nausea, vomiting, melena or hematemesis, no history of abdominal pain or discomfort. No history of change in bowel habits. Neurological: No history of lightheadedness, dizziness, presyncope or syncope. No history of seizures or focal weakness. Endocrine: History of hypothyroidism, currently denies having intolerance to cold or warm weather. There is no known history of any other endocrine disorder. Genitourinary: History of BPH, history of a weak stream, occasional nocturia, no history of hematuria or recent urgency. Musculoskeletal: History of mild arthritis involving the left thumb. Hematological: No history of anemia, bleeding or ecchymosis. Skin: Complaining of a macular rash involving both upper extremities. PHYSICAL EXAMINATION:General: A 72-year-old alert gentleman in no acute distress, no pallor, cyanosis, clubbing or jaundice. Vital Signs: Weight 261.6 pounds, temperature 97.9 degrees Fahrenheit, blood pressure 144/65 mmHg, pulse 89 beats per minute and irregularly irregular, respirations 20 per minute, oxygen saturation on May 31, 2018, was 100% on 2 L of oxygen. Neck: Supple, no jugular venous distention, hepatojugular reflux was negative, carotids were 2+, no bruits are heard and no thyromegaly was heard. Heart: No heaves or thrills, heart sounds were distant, S1 was variable, S2 was normal, ? grade 1/6 apical systolic murmur heard in the left lateral position. No diastolic murmur or gallops were heard. Lungs: Clear on auscultation. Chest: Normal AP diameter, expansion was symmetrical. Abdomen: Obese, soft and nontender. No hepatosplenomegaly or palpable masses were felt. Bowel sounds are present, no bruits were heard. Extremities: No calf tenderness or dependent edema, pulses were equal. LABORATORY DATA: May 31, 2018, sodium 138, potassium was 3.4, chloride 103, CO2 25 mmol/L. BUN 14, creatinine 1.2 mg/dL. Magnesium was 2.2 mg/dL. Total bilirubin was elevated at 2.3. Direct bilirubin was 1.0. CK was 463. Troponin was 0.05. BNP on May 30, 2018, was 1587.9. TSH was elevated at 8.57. Hemoglobin May 31, 2018, WBC 5800. Hemoglobin was 17.0 g/dL. Hematocrit was 48.9%. Platelet count was 88,000. Neutrophils were 77.1%. Lymphocytes 14.5%, monocytes 6.6%. Eosinophils 1.2%. Basophil 0.6%. CT scan of the chest was reported to have stable examination. No specific infiltrate of congestive heart failure seen. Clinical correlation is advised. Abdominal sonogram was reported to have no sonographic evidence of cholelithiasis. In comparison to study of 2016 ultrasound study developed mild diffuse nonspecific gallbladder wall thickening is noted, ? secondary to possible hepatic congestion (given cardiomegaly noted on radiography and CTP) versus representing inflammatory changes. If clinically indicated additional evaluation utilizing radionuclide HIDA scan may be performed. There is no definite biliary tract dilatation. As the prior exam there is probable minimal to mild hepatomegaly. No obvious focal pathology noted. ECG May 30, 2018, atrial fibrillation. Left anterior hemiblock. Anteroseptal infarct cited on or before May 07, 2010. When compared to ECG of March 09, 2016, no significant change was found. Echocardiogram interpretation summary: Technically limited study. Left ventricle is normal in size. Left ventricular systolic function is mildly reduced. There is mild global hypokinesia of the left ventricle. Ejection fraction 45% to 50%. The right ventricular systolic function is normal. The left atrium is severely dilated. Right atrial size is normal. There is mild mitral annular calcification. There is moderate mitral regurgitation. There is mild tricuspid regurgitation. There is mild aortic sclerosis. There is no pericardial effusion. IMPRESSION: 1. Congestive heart failure, most likely precipitated by recent influenza. 2. Influenza A. 3. History of left ventricular diastolic dysfunction. 4. Hypertension, hypertensive cardiovascular disease. 5. Chronic obstructive pulmonary disease. 6. Permanent atrial fibrillation with controlled ventricular response. 7. Hypothyroidism, poorly controlled. 8. Thrombocytopenia, etiology to be determined. 9. Mitral regurgitation of moderate severity by Doppler interrogation. 10. Hypokalemia. 11. Hypercholesterolemia. 12. Elevated bilirubin. 13. Macular rash involving both upper extremities, etiology to be determined. RECOMMENDATIONS: 1. Repeat a comprehensive metabolic profile and CBC. 2. Correction of serum potassium level. 3. Correction of hypothyroidism. 4. Evaluation of thrombocytopenia. 5. Dermatological evaluation for rash involving both upper extremities. 6. Patient could be switched back to oral Lasix. 7. Daily weights. 8. Recheck her bilirubin level. PROGNOSIS: Guarded. Thank you for your referral. Yours sincerely, JOANNA WOODS M.D. [id number]
[2018-06-01] MEDS ORDERED: PT OWN MED DRAWER 7, Y5N ONE (18:10)
[2018-06-01] MEDS: RIVAROXABAN 10 MG TABLET PO SCH (18:13)
[2018-06-01] MEDS: guaiFENesin 200 MG/10 ML 10 ML UNIT-DOSE CUPS PO PRN (18:16)
[2018-06-01] MEDS: ATORVASTATIN CA 10 MG TABLET (FP) PO SCH (21:27)
[2018-06-02] MEDS: guaiFENesin 200 MG/10 ML 10 ML UNIT-DOSE CUPS PO PRN ×2 (00:18→09:27)
[2018-06-02] MEDS: LEVOTHYROXINE NA 125 MCG TABLET (FP) PO SCH (06:37)
[2018-06-02] MEDS ORDERED: PT OWN MED DRAWER 7, Y5N ONE (09:21)
[2018-06-02 09:23] VITALS: BP 124/71; PULSE 87; TEMP 97.9
[2018-06-02] MEDS: DIGOXIN 0.125 MG TABLET (FP) PO SCH (09:26)
[2018-06-02] MEDS: hydrALAZINE HCL 50 MG TABLET (FP) PO SCH (09:26)
[2018-06-02] MEDS: TAMSULOSIN HCL 0.4 MG CAP PO SCH (09:26)
[2018-06-02] MEDS: LOSARTAN POTASSIUM 50 MG TABLET (FP) PO SCH (09:26)
[2018-06-02] MEDS: CARVEDILOL 25 MG TABLET (FP) PO SCH (09:26)
[2018-06-02] MEDS: POTASSIUM CHLORIDE TABS 20 MEQ TABLET.ER (FP) PO SCH (09:26)
[2018-06-02] MEDS: SERTRALINE HCL 50 MG TABLET (FP) PO SCH (09:26)
[2018-06-02] MEDS: OSELTAMIVIR PHOSPHATE 75 MG CAPSULE PO SCH (09:27)
[2018-06-02] MEDS ORDERED: FUROSEMIDE 40 MG TABLET (FP) PO SCH (10:00)
--- NOTE | 2018-06-02 11:01 | DS ---
Physical Examination Vital Signs: Vital Signs Temperature 97.9 F 06/02/18 09:22 Pulse Rate 87 06/02/18 09:26 Respiratory Rate 18 06/02/18 09:22 Blood Pressure 124/71 06/02/18 09:22 O2 Sat by Pulse Oximetry (%) 99 06/01/18 21:00 Constitutional: Yes: No Distress, Calm Cardiovascular: Yes: Regular Rate and Rhythm Respiratory: Yes: Diminished, Rhonchi (less) Gastrointestinal: Yes: Normal Bowel Sounds, Soft Edema: No Labs: CBC, BMP 05/31/18 06:20 05/31/18 06:20 Discharge Summary Reason For Visit: ACUTE ON CHRONIC CONGESTIVE HEART FAILURE, Current Active Problems CHF exacerbation (Acute) Influenza A (Acute) SOB (shortness of breath) (Acute) Hospital Course: Admitted for acute CHF Found to have influenza Started on tamiflu evaluated by cardiology Pt better after IV lasix Now on PO Lasix Doing well stable for dc home on PO tamiflu --complete the course follow up with cardiology as outpt Condition: Stable - Instructions Disposition: HOME - Home Medications Comprehensive Discharge Medication List: Ambulatory Orders Carvedilol [Coreg] 25 mg PO BID 11/06/15 Digoxin 125 mcg PO DAILY 11/06/15 Sertraline HCl 50 mg PO DAILY 11/06/15 Simvastatin [Zocor -] 10 mg PO HS 11/06/15 Tamsulosin HCl 0.4 mg PO DAILY 11/06/15 Furosemide 40 mg PO DAILY #0 11/09/15 Potassium Chloride [K-Dur -] 20 meq PO DAILY #30 tablet.er 11/09/15 Levothyroxine [Synthroid -] 125 mcg PO DAILY@0700 05/30/18 Losartan Potassium [Cozaar -] 100 mg PO DAILY 05/30/18 Rivaroxaban [Xarelto -] 10 mg PO DAILY 05/30/18 hydrALAZINE HCL [Apresoline -] 50 mg PO BID 05/30/18 Fenofibrate 120 mg PO HS 05/31/18
== END 2018-06-02 12:54 | disposition home or self-care (01) | DRG 193 ==
LOC: JER 21:00 → JERBED 22:45 → J4W 05-31 18:54 → OBSVTOIN 06-01 11:46
PROVIDERS: ADMIT Internal Medicine; ATTEND Internal Medicine
DX: J10.1 Influenza due to other identified influenza virus with other respiratory manifestations (principal); I50.23 Acute on chronic systolic (congestive) heart failure; I42.8 Other cardiomyopathies; I48.1 Persistent atrial fibrillation; I11.0 Hypertensive heart disease with heart failure; J44.9 Chronic obstructive pulmonary disease, unspecified; E78.5 Hyperlipidemia, unspecified; E03.9 Hypothyroidism, unspecified; F32.9 Major depressive disorder, single episode, unspecified; E66.9 Obesity, unspecified; N40.0 Benign prostatic hyperplasia without lower urinary tract symptoms; Z79.01 Long term (current) use of anticoagulants; R91.1 Solitary pulmonary nodule; K76.1 Chronic passive congestion of liver; Z68.32 Body mass index [BMI] 32.0-32.9, adult
CPT/HCPCS: 36415; 71045-TC-FY; 71250-TC; 76705-TC; 80053; 80162; 82248; 82550; 82553; 82803; 83735; 83880; 84439; 84443; 84484; 85025; 85610; 85730; 87804; 93005; 93010; 93306-TC; 99284-25; G0378; J0131